=== PATIENT | female | born 1950 | race Caucasian/White ===

== ENCOUNTER 2016-07-12 08:20 | Inpatient (IN) ==
--- NOTE | 2016-07-11 20:36 | Discharge Summary ---
<Nancy Hogan - Last Filed: 07/11/16 20:33> Date of Encounter: 07/12/16 - Discharge Diagnosis (1) Arthritis of knee, right Priority: Primary Status: Acute (2) CKD (chronic kidney disease) Priority: Secondary Status: Chronic Qualifiers: Chronic kidney disease stage: unspecified stage Qualified Code(s): N18.9 - Chronic kidney disease, unspecified (3) HTN (hypertension) Priority: Secondary Status: Chronic Qualifiers: Hypertension type: essential hypertension Qualified Code(s): I10 - Essential (primary) hypertension (4) Factor V Leiden Priority: Secondary Status: Chronic (5) History of CVA (cerebrovascular accident) Priority: Secondary Status: Chronic - Discharge Medications Home Medications: OxyCODONE Immed Rel [Roxicodone 5 MG] 5 - 10 mg PO Q6HR PRN #40 tablet 07/11/16 [Rx] Cartilage/Collagen/Bor/Hyalur [Joint Health Tablet] 1 each PO DAILY 07/12/16 [ History] Losartan Potassium [Cozaar] 50 mg PO DAILY 07/12/16 [History] Psyllium Husk [Daily Fiber] 0.52 gm PO DAILY 07/12/16 [History] Warfarin [Coumadin] 5 mg PO Q72H 07/12/16 [History] Warfarin [Coumadin] 7.5 mg PO Q72H 07/12/16 [History] Warfarin [Coumadin] 7.5 mg PO Q72H 07/12/16 [History] Allergies/Adverse Reactions: Allergies Sulfa (Sulfonamide Antibiotics) Allergy (Verified 07/12/16 09:07) Hives Primary care physician: Srikanth Dye MD - Patient Status Disposition: Transfer Inpatient Rehab Fac Condition: Fair - Discharge Instructions Follow Up With: Sami Smith MD [Partnered Physician] - 08/10/16 9:40 am Nancy Hogan PAC [Physician Cosmetic Chemist] - 07/22/16 9:45 am Srikanth Dye MD [Primary Care Provider] - - Hospital Course Hospital course: Ms. Rizzo is a 66 year old female - Time Spent with Patient Total time spent providing and/or coordinating discharge services: <Sami Smith - Last Filed: 07/15/16 14:04> Date of Encounter: 07/15/16 Time of Encounter: 14:03 - Discharge Diagnosis (1) Arthritis of knee, right Priority: Primary Status: Acute (2) CKD (chronic kidney disease) Priority: Secondary Status: Chronic Qualifiers: Qualified Code(s): N18.9 - Chronic kidney disease, unspecified (3) Factor V Leiden Priority: Secondary Status: Chronic (4) HTN (hypertension) Priority: Secondary Status: Chronic Qualifiers: Qualified Code(s): I10 - Essential (primary) hypertension (5) History of CVA (cerebrovascular accident) Priority: Secondary Status: Chronic (6) Acute blood loss anemia Priority: Primary Status: Acute Primary care physician: Srikanth Dye MD - Patient Status Functional capacity at discharge: uses cane/walker Overall status at discharge: patient is progressing back to baseline - Hospital Course Hospital course: Ms. Rizzo is a 66 year old female Patient with low-grade fever on discharge all testing negative UA, chest x-ray, Doppler. Otherwise uneventful postoperative course received antibiotics physical therapy - Time Spent with Patient Total time spent providing and/or coordinating discharge services:
--- NOTE | 2016-07-12 08:58 | History & Physical Report ---
Date of Encounter: 07/12/16 Time of Encounter: 08:57 24 Hour HP Update - Instructions Instructions: If the History and Physical is less than 30 days old and was completed prior to A.M. admission and or procedure and has NOT been updated on calendar day of procedure please complete this update prior to performing procedure. - Update Patient reports changes in Medical Condition: No Changes in assessment/condition: No Changes in Medication: No Preop tests/diagnostics Reviewed: Yes Surgery Remains Indicated: Yes Consent for Planned Operative Procedure(s) Verified: Yes - Pre-Operative Checklist Preoperative Checklist Indicated: No Prophylactic Antibiotic Ordered: Yes Is VTE Prophylaxis Indicated?: Yes
[2016-07-12] MEDS ORDERED: CeFAZolin Pre 2,000 MG/100 ML 2,000 MG/100 ML BAG IVPB ONE (09:10)
[2016-07-12] MEDS ORDERED: Ringers Solution, Lactated 500 ML IVC SCH (09:15)
[2016-07-12] MEDS ORDERED: Famotidine 20 MG/2 ML VIAL IVP ONE (10:03)
--- NOTE | 2016-07-12 10:06 | Anesthesia Evaluation PreOp ---
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) Other Medical History: Denies Any Significant HX Anesthesia History: No Prior Anesthetic Complications : No Alcohol Use: none Drug use: none Medications and Allergies OxyCODONE Immed Rel [Roxicodone 5 MG] 5 - 10 mg PO Q6HR PRN #40 tablet 07/11/16 [Rx] Cartilage/Collagen/Bor/Hyalur [Joint Health Tablet] 1 each PO DAILY 07/12/16 [ History] Losartan Potassium [Cozaar] 50 mg PO DAILY 07/12/16 [History] Psyllium Husk [Daily Fiber] 0.52 gm PO DAILY 07/12/16 [History] Warfarin [Coumadin] 5 mg PO 2XW 07/12/16 [History] Warfarin [Coumadin] 7.5 mg PO 5XD 07/12/16 [History] Allergies Sulfa (Sulfonamide Antibiotics) Allergy (Verified 07/12/16 09:07) Hives - Meds/Allergy Pre-op Review Medications Reviewed: Yes Allergies Reviewed: Yes Beta Blockers on Current Med List: No Anesthesia Results - Labs Laboratory Tests 06/28/16 06/28/16 06/28/16 13:40 13:40 13:40 Hgb 12.8 Hct 39.3 Plt Count 211 INR 1.6 Sodium 141 Potassium 4.4 BUN 20 Creatinine 1.04 - Imaging EKG: report reviewed (SB Anterosepatal infarct undetermined age) Anesthesia Exam O2 Sat Height 1.65 m Height 1.65 m Height 1.65 m Weight 92.079 kg Weight 92.079 kg Weight 92.079 kg O2 Sat by Pulse Oximetry 98 Vital Signs Temp Pulse Resp BP Pulse Ox 98.2 F 60 18 151/77 98 07/12/16 08:55 07/12/16 08:55 07/12/16 08:55 07/12/16 08:55 07/12/16 08:55 Height: 5'5 Weight: 203 lbs NPO (# of Hours): MN Pain Scale: 0 - HEENT Pupil (Motor): Pupils equal, EOMI Mallampati: II Teeth: Normal Oral Opening: Greater than 3 - TECHNOLOGY PROGRAM MANAGER LOC: Oriented TECHNOLOGY PROGRAM MANAGER Motor: Normal RUE, Normal LUE, Normal RLE, Normal LLE, Normal Face TECHNOLOGY PROGRAM MANAGER Sensory: Normal: RUE, LUE, RLE, LLE, Face - Cardiac Rhythm: Regular Murmur: None JVD: No Carotid Bruit: No - Pulmonary Breath Sounds: bilateral Clear Respiratory Effort: Symmetrical Anesthesia Assess/Plan ASA Score: 3 (HTN, CVA, Factor V Def) Modified Lincoln Scale for Level of Consciousness: Cooperative, oriented, and tranquil Anesthetic Plan: General, Regional Autologous Blood: Yes Recovery Plan: PACU (Discussed GA and RA, agrees to proceed)
[2016-07-12] MEDS ORDERED: Dexamethasone 4 MG/ML VIAL ONE (10:13)
[2016-07-12] MEDS ORDERED: *HR* Propofol 200 MG/20 ML VIAL IVP ONE (10:13)
[2016-07-12] MEDS ORDERED: Lidocaine -MPF 4% 5 ML AMPUL ONE (10:13)
[2016-07-12] MEDS ORDERED: Lidocaine -MPF 2% 2 ML VIAL ONE (10:13)
[2016-07-12] MEDS ORDERED: Ondansetron 4 MG/2 ML VIAL ONE (10:13)
[2016-07-12] MEDS ORDERED: *HR* Succinylcholine 200 MG/10 ML VIAL IVP ONE (10:13)
[2016-07-12] MEDS ORDERED: *HR* FentaNYL (PF) 100 MCG/2 ML VIAL ONE ×2 (10:13→12:21)
[2016-07-12] MEDS ORDERED: *HR* Midazolam HCl 2 MG/2 ML VIAL ONE (10:13)
[2016-07-12] MEDS ORDERED: *HR* Labetalol 100 MG/20 ML MDV IVP PRN (10:28)
[2016-07-12] MEDS ORDERED: *HR* Promethazine 25 MG/ML VIAL IVP PRN (10:28)
[2016-07-12] MEDS ORDERED: Tetracaine/PF 20 MG/2 ML AMPUL SPINA ONE (10:49)
[2016-07-12] MEDS ORDERED: Bupivacaine/Clonidine Syringe 1 EACH SYRINGE ONE (10:49)
--- NOTE | 2016-07-12 11:17 | Anesthesia Procedures ---
Date of Encounter: 07/12/16 Time of Encounter: 11:00 Procedures: Anesthesia - Nerve Block Procedure Date: 07/12/16 Time: 11:00 Allergies/Adv Reactions: sulfa Pre-op Diagnosis: right total knee arthritis Surgical Procedure: right total knee Checklist: Correct Patient Identifier, Correct procedure, History checked Correct side: Right Blood Thinner: Yes (off coumadin for 4 days) Monitor Applied: EKG, BP, Pulse Oximetry Supplemental Oxygen via Nasal Cannula (L/min): 2 Sedation: Versed (mg): 2 Sedation: Fentanyl (mcg): 100 Indication: Post Op Analgesia Pre-op Neuro Deficits: No Block Type: Femoral (+ ipack ) Catheter placed: No Sterile Technique: Yes Ultrasound used: Yes Anatomy identified: Yes Visual spread of Local: Yes Neuro Stimulation: Yes Nerve Stimulator Range: 0.2 - 0.4 mA Blood on Needle Aspiration: No Smooth Injection of Local: Yes Pain with Injection of Local: No Prep: Chlorhexadine Needle: 22 x 50 mm Stimuplex Local: 0.25% Bupivicaine w/Clonidine 20 mcg/cc Volume (cc): 40 Number of Attempts: 1 Complications: None/effective block Vitals: Vital Signs - Last 8 Hours Temp Pulse Resp BP Pulse Ox 07/12/16 11:05 56 14 143/79 98 07/12/16 10:45 62 16 168/82 100 07/12/16 08:55 98.2 F 60 18 151/77 98 Intake and Output 07/11/16 07/12/16 07/12/16 23:59 07:59 15:59 Other: Weight 92.079 kg Patient Weight 07/12/16 23:59 Weight 92.079 kg Comments: per dr. escobedo request
--- NOTE | 2016-07-12 12:01 | Orthopedic Operative Note ---
Date of procedure: 07/12/16 Pre-op diagnosis: Knee arthritis right Post-op diagnosis: same Procedure: Procedure: Right Total knee replacement Estimated blood loss: 1000 cc Hardware: Arthrex Femur: 4 Tibia: 4 PS insert: 13 Patella: 37 Exam Under anesthesia: Full range of motion and no instability Procedural Notes: Grade 3 arthritic changes medial compartment patellofemoral joint Operative procedure: The patient was brought to the operating room and placed on the operating room table. After general anesthesia was administered the operative knee was examined. Findings were noted in the exam under anesthesia. The operative extremity was prepped and draped in sterile surgical fashion. The patient received IV antibiotics prior to skin incision. A standard midline incision was made centered over the patella. The incision was made through the skin and subcutaneous tissue. A medial parapatellar tendon approach was performed. Care was taken to preserve tissue along the medial aspect of the patella. And to protect the patella tendon. The deep MCL was released off the medial tibia. The infra patella fat pad was excised. Knee was brought into flexion. The patient was noted to have grade 3 arthritic changes medial compartment and patellofemoral joint. The entry hole was made for the intramedullary femoral guide. The guide was seated in 6 degrees of valgus. Anterior cut was made followed by the distal cut. The ACL the PCL the medial and the lateral menisci were excised. The tibia was subluxed forward. The entry hole was made for the intramedullary tibial guide. Guide was seated to resect 2 mm off the more abnormal side. The knee was brought into flexion the distal femur was sized to a 4. The femoral guide was seated, the anterior cut was made followed by the posterior condylar cut, followed by the chamfer cuts. The finishing guide was seated the box cut was made and the lug holes were drilled. The tibia was sized to a 4, the tibial tray was seated and prepared with the large drill followed by the fin cutter. Trial reduction revealed full extension no varus valgus instability with the appropriate 13 PS Alannah. The patella was everted and cut was made at the level of the insertion of the quadriceps and patella tendon. The patella was sized to a 37 the guide was seated and the lug holes are drilled. Trial reduction revealed excellent patella tracking. All trial components were removed all bony surfaces were irrigated. The tibia was cemented first followed by the femur. The 13 PS Alannah was seated and the knee was brought into full extension. The patella was cemented and held in place with the patellar holding clamp. After the cement had hardened, the knee sat for 2 minutes with a Betadine saline solution. The knee was then irrigated out with 2 L of pulse irrigation. The extensor mechanism was closed with #2 FiberWire suture and #2 PDS suture. The subcutaneous tissue was then irrigated and closed deep with #1 PDS suture superficially with 0 PDS suture and skin was closed with skin robbie and Dermabond. The patient was then placed in a sterile dressing and a postoperative brace extubated and transferred to recovery room in stable condition. Anesthesia: JONATAN Surgeon: Sami Smith Welder: Nancy Hogan Condition: stable Disposition: PACU
[2016-07-12] MEDS: *HR* HYDROmorphone (PF) 1 MG/ML SYRINGE IVP PRN ×5 (12:51→21:41)
[2016-07-12] MEDS ORDERED: Ketorolac 30 MG/ML VIAL IVP ONE (12:58)
[2016-07-12 13:23] LABS: Hematocrit 30.5 % (35.3-44.9); Hemoglobin 9.9 g/dL (11.5-15.4)
[2016-07-12] MEDS ORDERED: Albuterol Neb 1.25 MG/3 ML VIAL IH ONE (14:18)
[2016-07-12] MEDS ORDERED: Sennosides 8.6 MG TABLET PO PRN (14:18)
[2016-07-12] MEDS ORDERED: *HR* OxyCODONE Immed Rel 5 MG TABLET PO PRN (14:18)
[2016-07-12] MEDS ORDERED: MOM Conc 10 ML UD.LIQ PO PRN (14:18)
[2016-07-12] MEDS ORDERED: Temazepam 15 MG CAPSULE PO PRN (14:18)
[2016-07-12] MEDS ORDERED: Naloxone 0.4 MG/ML INJ IVP PRN (14:18)
[2016-07-12] MEDS ORDERED: Ringers Solution, Lactated 1,000 ML IVC SCH (14:18)
[2016-07-12] MEDS ORDERED: Acetaminophen IV 1,000 MG/100 ML INFUS..BTL IVPB PRN (15:49)
--- NOTE | 2016-07-12 15:58 | Anesthesia Evaluation Post Op ---
Date of Encounter: 07/12/16 Time of Encounter: 14:10 - Vital Signs Vital Signs: Vital Signs/O2 Sat/Glucose, Most Current Temp Pulse Resp BP Pulse Ox 07/12/16 15:39 97.5 F L 51 16 163/84 100 07/12/16 14:58 97.8 F 50 14 164/79 95 07/12/16 14:26 97.5 F L 54 18 142/91 98 07/12/16 14:10 98.6 F 66 18 153/83 98 07/12/16 14:00 98.6 F 64 16 164/89 96 07/12/16 13:50 59 18 161/97 95 07/12/16 13:40 64 20 168/92 98 07/12/16 13:30 98.2 F 63 20 175/88 98 07/12/16 13:20 57 18 165/106 96 07/12/16 13:10 55 20 177/102 100 07/12/16 13:00 97.8 F 57 18 172/91 98 07/12/16 12:50 56 16 168/85 94 L 07/12/16 12:40 52 14 185/91 100 07/12/16 12:35 55 14 162/92 100 07/12/16 12:30 97.3 F L 54 14 139/73 98 - Lungs Lungs: Clear Ascult./Percussion - Airway Airway: Non-obstructed - Cardiovascular Regular Rate - Mental Status Mental Status: Alert & Oriented, Answers Appropriately - Pain Pain Scale: 4 - Nausea Vomiting Nausea Vomiting: Not Present - Hydration Hydration: Ice chips - Discharge PostOp Status: Transfer Patient to floor
[2016-07-12] MEDS: Ondansetron 4 MG/2 ML VIAL IVP PRN (16:10)
[2016-07-12] MEDS: ceFAZolin 2,000 MG in D5% in Water 100 ML IVPB SCH (17:37)
[2016-07-12] MEDS: *HR* Enoxaparin 30 MG/0.3 ML SYRINGE SQ SCH (17:37)
[2016-07-12] MEDS ORDERED: *HR* Warfarin 7.5 MG TABLET PO SCH (18:00)
[2016-07-12] MEDS ORDERED: *HR* Enoxaparin 30 MG/0.3 ML SYRINGE SQ SCH (18:00)
[2016-07-12] MEDS ORDERED: Scopolamine Patch 1.5 MG PATCH.TD72 TD ONE (18:16)
[2016-07-12 20:22] LABS: Hematocrit 31.5 % (35.3-44.9); Hemoglobin 10.2 g/dL (11.5-15.4)
[2016-07-13] MEDS: Ringers Solution, Lactated 1,000 ML IVC SCH ×2 (00:03→10:33)
[2016-07-13] MEDS: ceFAZolin 2,000 MG in D5% in Water 100 ML IVPB SCH (00:04)
[2016-07-13] MEDS: *HR* HYDROmorphone (PF) 1 MG/ML SYRINGE IVP PRN ×4 (00:38→21:24)
[2016-07-13] MEDS: Ondansetron 4 MG/2 ML VIAL IVP PRN ×2 (00:42→08:42)
[2016-07-13] MEDS: *HR* Enoxaparin 30 MG/0.3 ML SYRINGE SQ SCH ×2 (06:17→17:31)
[2016-07-13 06:21] LABS: Hematocrit 27.2 % (35.3-44.9); Hemoglobin 8.9 g/dL (11.5-15.4)
--- NOTE | 2016-07-13 06:26 | Orthopedics Progress Note ---
Date of Encounter: 07/13/16 Time of Encounter: 06:25 - Assessment and Plan (1) Arthritis of knee, right Current Visit: Yes Status: Acute (2) CKD (chronic kidney disease) Current Visit: Yes Status: Chronic Qualifiers: Chronic kidney disease stage: unspecified stage Qualified Code(s): N18.9 - Chronic kidney disease, unspecified (3) Factor V Leiden Current Visit: Yes Status: Chronic (4) HTN (hypertension) Current Visit: Yes Status: Chronic Qualifiers: Hypertension type: essential hypertension Qualified Code(s): I10 - Essential (primary) hypertension (5) History of CVA (cerebrovascular accident) Current Visit: Yes Status: Chronic Subjective Interval history: Patient was seen this morning doing well without complaints. Afebrile vital signs stable. Operative extremity: Neurovascularly intact Dressing clean dry and intact Calves nontender Assessment and plan: Continue with postoperative care Hemoglobin 8.9 recheck this morning Objective Vital signs: Vital Signs Temp Pulse Resp BP Pulse Ox 07/13/16 04:20 97.8 F 66 14 126/68 94 L 07/12/16 23:37 97.9 F 53 16 129/72 97 07/12/16 19:25 97.5 F L 54 17 152/82 100 07/12/16 17:43 51 14 162/85 100 07/12/16 17:28 97.5 F L 51 14 162/85 100 07/12/16 16:31 97.3 F L 56 16 173/95 99 07/12/16 15:42 16 100 07/12/16 15:39 97.5 F L 51 16 163/84 100 07/12/16 14:58 97.8 F 50 14 164/79 95 07/12/16 14:26 97.5 F L 54 18 142/91 98 07/12/16 14:10 98.6 F 66 18 153/83 98 07/12/16 14:00 98.6 F 64 16 164/89 96 07/12/16 13:50 59 18 161/97 95 07/12/16 13:40 64 20 168/92 98 07/12/16 13:30 98.2 F 63 20 175/88 98 07/12/16 13:20 57 18 165/106 96 07/12/16 13:10 55 20 177/102 100 07/12/16 13:00 97.8 F 57 18 172/91 98 07/12/16 12:50 56 16 168/85 94 L 07/12/16 12:40 52 14 185/91 100 07/12/16 12:35 55 14 162/92 100 07/12/16 12:30 97.3 F L 54 14 139/73 98 07/12/16 11:05 56 14 143/79 98 07/12/16 10:45 62 16 168/82 100 07/12/16 08:55 98.2 F 60 18 151/77 98 Intake and Output 07/12/16 07/12/16 07/13/16 15:59 23:59 07:59 Intake Total 110 / 110 100 / 100 100 / 100 Output Total 1000 / 1000 350 / 350 Balance -890 / -890 -250 / -250 100 / 100 Intake: IV Fluids 100 / 100 100 / 100 100 / 100 Ancef 2,000 MG In 100 / 100 100 / 100 Dextrose 5% 100 ML @ 200 mls/hr IVPB Q8HR [facility] Rx#: [id number] Ancef Premix 2,000 MG/100 100 / 100 ML 2,000 mg In 100 ml @ 200 mls/hr IVPB PREOP ONE Rx#:[id number] Oral 10 / 10 Output: Urine 350 / 350 Estimated Blood Loss 1000 / 1000 Other: Weight 92.079 kg - Labs CBC & BMP: 07/13/16 05:34 Labs: Abnormal lab results Hgb 8.9 g/dL (11.5-15.4) L 07/13/16 05:34 Hct 27.2 % (35.3-44.9) L 07/13/16 05:34 - VTE Documentation of Mechanical Device: Venous foot pump, device Consult Discharge Plan - Plan Referrals: Srikanth Dye MD [Primary Care Provider] -
[2016-07-13 06:35] LABS: Calcium 8.4 mg/dL (8.6-10.8); Potassium 4.3 mEq/L (3.5-4.5)
[2016-07-13] MEDS: Psyllium 1 PACKET POWD.PACK PO SCH (07:59)
[2016-07-13] MEDS ORDERED: 0.9 % Sodium Chloride 250 ML ONE ×2 (11:40→15:57)
[2016-07-13] MEDS ORDERED: Furosemide 20 MG/2 ML VIAL IVP ONE ×2 (15:16→16:16)
[2016-07-13] MEDS: Furosemide 20 MG/2 ML VIAL IVP ONE ×2 (15:17→16:15)
[2016-07-13] MEDS: Acetaminophen 325 MG TABLET PO PRN (16:38)
[2016-07-13] MEDS: *HR* OxyCODONE Immed Rel 5 MG TABLET PO PRN (16:39)
[2016-07-13] MEDS ORDERED: *HR* Warfarin 7.5 MG TABLET PO SCH (18:00)
[2016-07-14] MEDS: *HR* OxyCODONE Immed Rel 5 MG TABLET PO PRN ×5 (00:32→21:35)
[2016-07-14] MEDS: Acetaminophen 325 MG TABLET PO PRN ×2 (04:45→21:34)
[2016-07-14] MEDS: *HR* HYDROmorphone (PF) 1 MG/ML SYRINGE IVP PRN ×5 (05:55→23:14)
[2016-07-14] MEDS: *HR* Enoxaparin 30 MG/0.3 ML SYRINGE SQ SCH ×2 (05:56→17:30)
[2016-07-14 06:06] LABS: Hematocrit 29.1 % (35.3-44.9); Hemoglobin 9.7 g/dL (11.5-15.4)
[2016-07-14 06:26] LABS: Calcium 8.5 mg/dL (8.6-10.8); Potassium 3.9 mEq/L (3.5-4.5)
--- NOTE | 2016-07-14 06:44 | Orthopedics Progress Note ---
Date of Encounter: 07/14/16 Time of Encounter: 06:43 - Assessment and Plan (1) Arthritis of knee, right Current Visit: Yes Status: Acute (2) CKD (chronic kidney disease) Current Visit: Yes Status: Chronic Qualifiers: Qualified Code(s): N18.9 - Chronic kidney disease, unspecified (3) Factor V Leiden Current Visit: Yes Status: Chronic (4) HTN (hypertension) Current Visit: Yes Status: Chronic Qualifiers: Qualified Code(s): I10 - Essential (primary) hypertension (5) History of CVA (cerebrovascular accident) Current Visit: Yes Status: Chronic (6) Acute blood loss anemia Current Visit: Yes Status: Acute Subjective Interval history: Patient was seen this morning doing well without complaints. Afebrile vital signs stable. Operative extremity: Neurovascularly intact Dressing clean dry and intact Calves nontender Assessment and plan: Continue with postoperative care hct 29 Objective Vital signs: Vital Signs Temp Pulse Resp BP Pulse Ox 07/14/16 04:30 100.1 F H 75 18 130/70 95 07/14/16 00:05 97.7 F 77 18 129/70 95 07/13/16 20:05 99.5 F 63 16 152/75 99 07/13/16 19:30 99.5 F 63 16 124/63 98 07/13/16 16:36 99.5 F 63 16 152/75 99 07/13/16 16:21 99.2 F 63 14 142/73 100 07/13/16 15:13 98.9 F 60 14 132/70 100 07/13/16 12:15 99.5 F 61 16 130/73 100 07/13/16 12:00 99.5 F 62 16 117/66 98 07/13/16 11:56 99.4 F 69 16 134/74 95 07/13/16 07:01 99.3 F 64 16 137/58 93 L Intake and Output 07/13/16 07/13/16 07/14/16 15:59 23:59 07:59 Intake Total 1300 / 1300 340 / 340 Output Total 350 / 350 400 / 400 Balance 950 / 950 340 / 340 -400 / -400 Intake: IV Fluids 1000 / 1000 Lactated Ringers 1,000 ML 1000 / 1000 @ 125 mls/hr IVC .Q8H ED[facility] Rx#:[id number] Blood Product 300 / 300 340 / 340 Rbcs Leuko Poor As-1 340 / 340 Unit [id number] Rbcs Leuko Poor As-1 300 / 300 Unit [id number] Output: Urine 350 / 350 400 / 400 Other: # Voids 1 - Labs CBC & BMP: 07/14/16 05:38 07/14/16 05:38 Labs: Abnormal lab results Hgb 9.7 g/dL (11.5-15.4) L 07/14/16 05:38 Hct 29.1 % (35.3-44.9) L 07/14/16 05:38 BUN 21 mg/dL (7-20) H 07/14/16 05:38 Creatinine 1.14 mg/dL (0.57-1.11) H 07/14/16 05:38 Est GFR ( Amer) 57 (> 60) L 07/14/16 05:38 Est GFR (Non-Af Amer) 47 (> 60) L 07/14/16 05:38 Glucose 112 mg/dL (70-99) H 07/14/16 05:38 Calcium 8.5 mg/dL (8.6-10.8) L 07/14/16 05:38 - VTE Documentation of Mechanical Device: Venous foot pump, device Consult Discharge Plan - Plan Referrals: Srikanth Dye MD [Primary Care Provider] -
[2016-07-14] MEDS: Psyllium 1 PACKET POWD.PACK PO SCH (09:50)
[2016-07-14] MEDS ORDERED: *HR* Warfarin 5 MG TABLET PO SCH (18:00)
[2016-07-15] MEDS: *HR* OxyCODONE Immed Rel 5 MG TABLET PO PRN (02:58)
[2016-07-15 05:04] LABS: INR 1.6
[2016-07-15] MEDS: *HR* Enoxaparin 30 MG/0.3 ML SYRINGE SQ SCH (05:13)
[2016-07-15] MEDS: *HR* HYDROmorphone (PF) 1 MG/ML SYRINGE IVP PRN (05:21)
[2016-07-15 07:37] LABS: Bilirubin,Urine Negative (Negative); Blood,Urine Negative (Negative); Clarity,Urine Cloudy (Clear); Color,Urine Yellow (Yellow); Glucose,Urine (UA) Normal (Normal); Ketones,Urine Negative (Negative); Leukocyte Esterase,Urine Negative (Negative); Nitrite,Urine Negative (Negative); Protein,Urine Negative (Neg-Trace); Specific Gravity,Urine 1.012 (1.010-1.025); Urobilinogen,Urine Normal (Normal)
--- NOTE | 2016-07-15 07:42 | Orthopedics Progress Note ---
Date of Encounter: 07/15/16 Time of Encounter: 07:41 - Assessment and Plan (1) Arthritis of knee, right Current Visit: Yes Status: Acute (2) CKD (chronic kidney disease) Current Visit: Yes Status: Chronic Qualifiers: Qualified Code(s): N18.9 - Chronic kidney disease, unspecified (3) Factor V Leiden Current Visit: Yes Status: Chronic (4) HTN (hypertension) Current Visit: Yes Status: Chronic Qualifiers: Qualified Code(s): I10 - Essential (primary) hypertension (5) History of CVA (cerebrovascular accident) Current Visit: Yes Status: Chronic (6) Acute blood loss anemia Current Visit: Yes Status: Acute Subjective Interval history: Patient was seen this morning doing with low-grade fever overnight Afebrile vital signs stable morning. Operative extremity: Neurovascularly intact Dressing clean dry and intact Calves nontender Assessment and plan: Continue with postoperative care We will obtain a urine culture UA, chest x-ray and Doppler right lower extremity if all negative will discharge today. Objective Vital signs: Vital Signs Temp Pulse Resp BP Pulse Ox 07/15/16 05:18 99.3 F 78 16 123/76 97 07/15/16 01:15 98.5 F 90 15 114/65 93 L 07/14/16 21:34 100.1 F H 87 16 160/72 97 07/14/16 17:38 76 16 177/90 96 07/14/16 13:49 95 07/14/16 11:08 149/69 Intake and Output 07/14/16 07/14/16 07/15/16 15:59 23:59 07:59 Intake Total 590 / 590 300 / 300 Output Total 1050 / 1050 150 / 150 Balance -460 / -460 150 / 150 Intake: Oral 590 / 590 300 / 300 Output: Urine 1050 / 1050 150 / 150 Other: Meal Breakfast Percent of Meal Consumed 50% # Voids 1 - Labs CBC & BMP: 07/14/16 05:38 07/14/16 05:38 Labs: Abnormal lab results Hgb 9.7 g/dL (11.5-15.4) L 07/14/16 05:38 Hct 29.1 % (35.3-44.9) L 07/14/16 05:38 PT 18.0 Seconds (9.4-12.1) H 07/15/16 04:32 BUN 21 mg/dL (7-20) H 07/14/16 05:38 Creatinine 1.14 mg/dL (0.57-1.11) H 07/14/16 05:38 Est GFR ( Amer) 57 (> 60) L 07/14/16 05:38 Est GFR (Non-Af Amer) 47 (> 60) L 07/14/16 05:38 Glucose 112 mg/dL (70-99) H 07/14/16 05:38 Calcium 8.5 mg/dL (8.6-10.8) L 07/14/16 05:38 - VTE Documentation of Mechanical Device: Venous foot pump, device Consult Discharge Plan - Plan Referrals: Sami Smith MD [Partnered Physician] - 08/10/16 9:40 am Nancy Hogan PAC [Physician Foundry Melt Supervisor] - 07/22/16 9:45 am Srikanth Dye MD [Primary Care Provider] -
[2016-07-15 07:43] LABS: Bacteria,Urine None Seen per hpf (None-Few); Hyaline Casts,Urine None Seen per lpf (None-Few); Squamous Epithelial Cell,Urine Many per lpf (None-Few)
[2016-07-15] MEDS: *HR* HYDROcodone/Acet 5/325 mg TABLET PO PRN ×2 (08:39→14:09)
[2016-07-15] MEDS: Psyllium 1 PACKET POWD.PACK PO SCH (08:40)
[2016-07-15] MEDS: Ondansetron 4 MG/2 ML VIAL IVP PRN (08:40)
[2016-07-15 10:25] LABS: Hematocrit 29.6 % (35.3-44.9); Hemoglobin 9.5 g/dL (11.5-15.4)
[2016-07-15 10:39] LABS: BUN/Creatinine Ratio 20 (6-26); Blood Urea Nitrogen 20 mg/dL (7-20); Calcium 8.5 mg/dL (8.6-10.8); Carbon Dioxide 26 mEq/L (19-29); Chloride 96 mEq/L (98-109); Glucose 105 mg/dL (70-99); Osmolality,Calculated 279 (280-300); Potassium 3.8 mEq/L (3.5-4.5); Sodium 133 mEq/L (136-145); eGFR For African Americans > 60 (> 60); eGFR For Non-African Americans 55 (> 60)
[2016-07-15 11:49] VITALS: BP 131/69
[2016-07-15] MEDS ORDERED: Ketorolac 15 MG/ML VIAL IVP ONE (15:46)
[2016-07-15] MEDS ORDERED: Scopolamine Patch 1.5 MG PATCH.TD72 TD ONE (15:48)
--- NOTE | 2016-07-15 20:14 | Venous Imaging Report ---
LE Venous Duplex Patient Name:Chichi Rizzo Order Number:[id number] Procedure Date:07/15/2016 Date:8Age:66 yrs Gender:Female Location:[facility] Room #: [id number] Revit Drafter:Corazon Escobar RVT Referring MD:Sami Smith MD hotel registration clerk:Srikanth Dye MD Reading MD:Chao Perez MD , FACS Primary Indications:R/O DVT Secondary Indications: Impressions: Right lower extremity: normal superficial and deep exam. Left lower extremity: normal contralateral exam. Recommendations: Test completed on 07/15/2016 at 10:45:00 am. Findings Venous Duplex Results: Right: Venous imaging of the lower extremity reveals full patency and normal vessel compressibility of the right distal iliac, right common femoral, right superficial femoral, right popliteal, right posterior tibial, right peroneal, right great saphenous and right lesser saphenous. Doppler signals in the evaluated veins were normal. Left: Venous imaging of the lower extremity reveals full patency and normal vessel compressibility of the left common femoral. Doppler signals in the evaluated veins were normal. Prior Study: No prior study available for comparison. Lower Extremity Venous Duplex Side Vein Compress Spontaneous Flow Augment Diameter (cm) Depth (cm) Right Distal Iliac Normal Yes Phasic Yes Right Common Femoral Normal Yes Phasic Yes Right Superficial Femoral Normal Yes Phasic Yes Right Popliteal Normal Yes Phasic Yes Right Posterior Tibial Normal Yes Phasic Yes Right Peroneal Normal Yes Phasic Yes Right Great Saphenous Normal Yes Phasic Yes Right Lesser Saphenous Normal Yes Phasic Yes Left Common Femoral Normal Yes Phasic Yes Updated by Chao Perez MD, FACS on 07/15/2016 8:09:34 PM Chao Perez MD electronically signed on 07/15/2016 8:09:58 PM with status of Final
== END 2016-07-15 17:00 | DRG 470 ==
LOC: SAMDAY 08:20 → 3NENU 14:43
PROVIDERS: ADMIT Orthopaedic Surgery; ATTEND Orthopaedic Surgery

== ENCOUNTER 2019-03-19 15:00 | Observation (INO) ==
[2019-03-19] MEDS ORDERED: Morphine Sulfate 2 MG/ML SYRINGE IVP ONE (16:26)
[2019-03-19] MEDS ORDERED: Isovue-370 500 ML BOTTLE IVP ONE (16:26)
[2019-03-19] MEDS ORDERED: Piperacillin/Tazobactam 3.375 GM in 0.9 % Sodium Chloride Mini Bag 100 ML IVPB ONE (16:26)
[2019-03-19] MEDS ORDERED: Ondansetron 4 MG/2 ML VIAL IVP ONE (16:26)
[2019-03-19 16:50] LABS: Basophils % 0.4 %; Eosinophils # 0.1 K/mcL (0.0-0.6); Eosinophils % 1.3 %; Hematocrit 34.7 % (35.3-44.9); Hemoglobin 11.4 g/dL (11.5-15.4); Immature Granulocytes % 0.2 % (0-4); Lymphocytes # 2.1 K/mcL (0.6-4.6); Mean Corpuscular HGB Conc 32.9 g/dL (31.6-35.5); Mean Corpuscular Hemoglobin 29.2 pg (28.0-33.3); Mean Corpuscular Volume 88.7 fL (83.0-100.0); Mean Platelet Volume 9.9 fL (9.4-12.4); Monocytes % 12.2 %; Neutrophils # 5.2 K/mcL (1.6-8.9); Platelet Count 229 K/mcL (140-400); Red Blood Count 3.91 M/mcL (3.82-4.97); Red Cell Distribution Width 12.4 % (11.5-14.5); Segmented Neutrophils % 60.9 %; White Blood Count 8.5 K/mcL (4.3-11.1)
[2019-03-19 17:02] LABS: INR 2.6; Prothrombin Time 30.1 Seconds (9.4-12.1)
[2019-03-19 17:10] LABS: BUN/Creatinine Ratio 21 (6-26); Blood Urea Nitrogen 21 mg/dL (8-23); Calcium 9.2 mg/dL (8.6-10.3); Carbon Dioxide 28 mEq/L (23-29); Chloride 102 mEq/L (98-107); Glucose 90 mg/dL (70-105); Osmolality,Calculated 287 (280-300); Potassium 4.3 mEq/L (3.5-5.1); Sodium 137 mEq/L (136-145); eGFR For African Americans > 60 (> 60); eGFR For Non-African Americans 55 (> 60)
[2019-03-19] MEDS ORDERED: Tdap (Boostrix) Vaccine 0.5 ML SYRINGE IM ONE (17:18)
[2019-03-19] MEDS ORDERED: Gadolinium Contrast Agent (WT Based) IV PRN (18:26)
[2019-03-19] MEDS ORDERED: Naloxone 0.4 MG/ML INJ IVP PRN (18:48)
[2019-03-19] MEDS ORDERED: *HR* OxyCODONE/APAP 5/325 TABLET PO PRN (18:53)
[2019-03-19] MEDS ORDERED: *HR* OxyCODONE/APAP 10/325 TABLET PO PRN (18:53)
[2019-03-19] MEDS ORDERED: amLODIPine 5 MG TABLET PO SCH (21:00)
[2019-03-19] MEDS: Ondansetron 4 MG/2 ML VIAL IVP PRN (21:58)
[2019-03-19] MEDS: Piperacillin/Tazobactam 3.375 GM in 0.9 % Sodium Chloride Mini Bag 100 ML IVPB SCH (23:31)
[2019-03-20] MEDS ORDERED: *HR* Promethazine 25 MG/ML VIAL IVP ONE (00:05)
[2019-03-20 02:03] LABS: Basophils % 0.3 %; Eosinophils % 0.3 %; Hemoglobin 10.8 g/dL (11.5-15.4); Immature Granulocytes % 0.3 % (0-4); Lymphocytes % 10.4 %; Mean Corpuscular HGB Conc 32.7 g/dL (31.6-35.5); Mean Corpuscular Hemoglobin 29.4 pg (28.0-33.3); Mean Corpuscular Volume 89.9 fL (83.0-100.0); Mean Platelet Volume 10.4 fL (9.4-12.4); Monocytes # 0.8 K/mcL (0.0-1.3); Monocytes % 7.8 %; Neutrophils # 7.9 K/mcL (1.6-8.9); Platelet Count 202 K/mcL (140-400); Red Blood Count 3.67 M/mcL (3.82-4.97); Red Cell Distribution Width 12.3 % (11.5-14.5); Segmented Neutrophils % 80.9 %; White Blood Count 9.8 K/mcL (4.3-11.1)
[2019-03-20 02:20] LABS: BUN/Creatinine Ratio 21 (6-26); Blood Urea Nitrogen 21 mg/dL (8-23); Calcium 8.7 mg/dL (8.6-10.3); Carbon Dioxide 26 mEq/L (23-29); Chloride 102 mEq/L (98-107); Glucose 138 mg/dL (70-105); Magnesium 1.8 mg/dL (1.6-2.6); Osmolality,Calculated 287 (280-300); Sodium 136 mEq/L (136-145); eGFR For African Americans > 60 (> 60); eGFR For Non-African Americans 55 (> 60)
[2019-03-20] MEDS: Ondansetron 4 MG/2 ML VIAL IVP PRN (04:56)
[2019-03-20 06:19] LABS: INR 2.7; Prothrombin Time 30.9 Seconds (9.4-12.1)
[2019-03-20] MEDS: Piperacillin/Tazobactam 3.375 GM in 0.9 % Sodium Chloride Mini Bag 100 ML IVPB SCH ×2 (08:49→16:52)
[2019-03-20] MEDS ORDERED: *HR* FentaNYL (PF) 100 MCG/2 ML VIAL ONE (16:29)
[2019-03-20] MEDS ORDERED: *HR* Propofol 200 MG/20 ML VIAL IVP ONE (16:30)
[2019-03-20] MEDS ORDERED: Lidocaine -MPF 2% 2 ML VIAL ONE (16:32)
[2019-03-20] MEDS ORDERED: Dexamethasone 4 MG/ML VIAL ONE (16:33)
[2019-03-20] MEDS ORDERED: Ondansetron 4 MG/2 ML VIAL ONE (16:33)
[2019-03-20] MEDS ORDERED: Bupivacaine/EPI 1:200k 0.5%PF 10 ML VIAL ONE (16:48)
[2019-03-20] MEDS ORDERED: EPHEDrine 50 MG/ML VIAL ONE (17:12)
[2019-03-20] MEDS: *HR* HYDROmorphone (PF) 1 MG/ML SYRINGE IVP PRN ×2 (18:15→18:27)
[2019-03-20] MEDS ORDERED: 0.9 % Sodium Chloride 250 ML ONE (19:07)
[2019-03-20] MEDS ORDERED: *HR* OxyCODONE/APAP 10/325 TABLET PO PRN (19:40)
[2019-03-20] MEDS ORDERED: Ondansetron 4 MG/2 ML VIAL IVP PRN (19:40)
[2019-03-20] MEDS ORDERED: Gadolinium Contrast Agent (WT Based) IV PRN (19:40)
[2019-03-20] MEDS ORDERED: Naloxone 0.4 MG/ML INJ IVP PRN (19:40)
[2019-03-20] MEDS ORDERED: *HR* OxyCODONE/APAP 5/325 TABLET PO PRN (19:40)
[2019-03-20] MEDS ORDERED: Piperacillin/Tazobactam 3.375 GM in 0.9 % Sodium Chloride Mini Bag 100 ML IVPB SCH (20:00)
[2019-03-20] MEDS ORDERED: amLODIPine 5 MG TABLET PO SCH (21:00)
[2019-03-21] MEDS: Piperacillin/Tazobactam 3.375 GM in 0.9 % Sodium Chloride Mini Bag 100 ML IVPB SCH ×2 (00:23→09:10)
[2019-03-21 05:18] LABS: Vancomycin,Trough 13 mcg/mL (5-10)
[2019-03-21 07:38] VITALS: BP 116/66
[2019-03-21 07:44] LABS: BUN/Creatinine Ratio 20 (6-26); Blood Urea Nitrogen 21 mg/dL (8-23); Calcium 8.8 mg/dL (8.6-10.3); Carbon Dioxide 24 mEq/L (23-29); Chloride 104 mEq/L (98-107); Glucose 146 mg/dL (70-105); Osmolality,Calculated 290 (280-300); Potassium 4.3 mEq/L (3.5-5.1); Sodium 137 mEq/L (136-145); eGFR For African Americans > 60 (> 60); eGFR For Non-African Americans 52 (> 60)
[2019-03-21 07:55] LABS: Hematocrit 33.7 % (35.3-44.9); Hemoglobin 10.6 g/dL (11.5-15.4); Immature Granulocytes % 0.3 % (0-4); Lymphocytes # 0.9 K/mcL (0.6-4.6); Mean Corpuscular HGB Conc 31.5 g/dL (31.6-35.5); Mean Corpuscular Hemoglobin 28.3 pg (28.0-33.3); Mean Corpuscular Volume 89.9 fL (83.0-100.0); Mean Platelet Volume 10.7 fL (9.4-12.4); Monocytes # 0.2 K/mcL (0.0-1.3); Monocytes % 3.3 %; Neutrophils # 5.5 K/mcL (1.6-8.9); Platelet Count 229 K/mcL (140-400); Red Blood Count 3.75 M/mcL (3.82-4.97); Red Cell Distribution Width 12.3 % (11.5-14.5); Segmented Neutrophils % 82.4 %; White Blood Count 6.7 K/mcL (4.3-11.1)
[2019-03-21] MEDS ORDERED: Aminoglycoside Consult 1 EACH MC ONE (10:58)
== END 2019-03-21 10:59 | disposition home or self-care (01) ==
LOC: EMEROOARM 15:00 → 3BNU 15:00
PROVIDERS: ADMIT Internal Medicine; ATTEND Internal Medicine